=== PATIENT | male | born 1985 | race African-American/Black ===

== ENCOUNTER 2021-09-02 10:04 | Outpatient (CLI) | payer OTHER ==
--- NOTE | 2021-09-02 12:03 | SLEEP CARE CONSULTATION ---
Information from patient questionnaire entered by Omaira Suresh MA. I have reviewed and concur with the information entered by Omaira Suresh MA. This document represents the service I personally performed and the decisions made by me, Renetta Flor MD, [facility]. History of Present Illness Service Date and Time: 09/02/2021 1004 Reason for Visit: New patient (ONSET 08/2020, NO PRIORS, ) Chief Complaint: reports: Insomnia, Unrefreshed sleep, Snoring, Frequent awakenings at night Date of Onset: 1 YEAR Usual bedtime: 1201 Time it takes to fall asleep: HOURS Snores at night: Yes Sleeps alone due to snoring: No Number of times waking at night: MULTIPLE Reasons for waking at night: reports: Other Toss, Turn, or Twitch while sleeping: Yes Recalls having dreams: Yes Usually gets out of bed at: 0530 Feels refreshed in the morning: No Morning headache: Yes Sleepy or fatigued during the day: Yes Ever fallen asleep while driving: No Takes day naps: No Dreams during day naps: Yes Prior sleep studies: No Additional HPI information: I had the pleasure of seeing Mr. Escalante today regarding the possibility of him having a sleep disorder. As you know, he is a 35-year-old gentleman who complains of frequent awakenings, insomnia, loud snore, and unrefreshed sleep for the past 1 year. The patient tells me that he normally goes to bed around midnight, and it takes him approximately hours to fall asleep. He has been told that he snores loudly and irregularly at night. He has never been observed to stop breathing in his sleep. His can still sleep in the same bed. He can recall waking up on the average of 5 - 10 times during the night. Most of the time he wakes up because of unknown reason. He has never awakened because of his own snoring, choking, or having to gasp for air. There is a lot of tossing and turning in his sleep. He reports having somniloquy (sleep talking) and somnambulism (sleep walking). No injury so far. Generally, he can recall having dreams. In the morning he usually gets up out of the bed around 5:30 a.m. not feeling refreshed nor rested. He usually has a morning headache that lasts a long time. During the day he complains of feeling sleepy and fatigued. His score on [place] Sleepiness Scale is 21 out of 24. He never has fallen asleep while driving nor has had any accident due to sleepiness. He usually does not take naps during the day. Upon falling asleep during the day he reports having vivid dreams. He has never had sleep paralysis, experienced cataplexy or symptoms of restless leg syndrome. He denies having impaired concentration during the day. - Parasomnia Symptoms Ever been unable to move upon waking from sleep: No Walks in sleep: Yes Talks in sleep: Yes Ever acted out dreams in sleep: Yes Ever felt weak in the knees when startled or emotional: Yes Bothered by creepy, crawly, restless sensations in legs: No Problems with memory or concentration: No Subjective Initial [place] Sleepiness Scale score: 20 (2021) Past Medical History Past Medical History: reports: Hypertension, Anxiety Social History The patient's occupation is a [employer]. Patient is and lives in [place]. Have you smoked in the past 12 months: No Alcohol use: Yes Alcohol amount and frequency: 2 X WEEKLY Caffeine use: No Family History Family history of sleep disordered breathing: Yes Family Hx Sleep Apnea: Father: Snoring, Other: Snoring Allergies and Home Medications Known drug allergies: No Drug allergies reviewed: Yes Home medication list reviewed: Yes Review of Systems Cardiovascular: reports: high blood pressure, palpitations Respiratory: denies: shortness of breath, wheeze, sputum production, chronic cough, other Gastrointestinal: denies: heartburn, difficulty swallowing, nausea, vomitting, diarrhea, abdominal pain, other Urinary: denies: incontinence, frequency, urgency, impotence, other Neurological: denies: headaches, seizure, head trauma, disorientation, speech dysfunction, gait or balance problems, fainting or unconsciousness, other Psychiatric: reports: anxiety Ear/Nose/Throat: denies: nasal congestion, sinus problems, nose bleeds, dry mouth/throat, hoarseness, injury to nose, tonsillectomy, wisdom teeth removed, other Endocrine: denies: thyroid disease, history of goiter, sluggishness, too hot or cold, excessive thirst, increased appetite, increased urination, unexplained weakness, other Musculoskeletal: reports: joint pain, neck pain Immunologic: reports: rash Physical Exam Vital signs obtained and entered by: MAURILIO SHELTON Blood Pressure: 120/76 (RIGHT, PULSE 91, RESP 18,) Heart Rate: 89 O2 Saturation: 99 (CLOTH) Height: 5 ft 9 in Weight: 214 lb (PT CLOTHES) Body Mass Index: 31.6 BMI Classification: Obese Neck circumference: 17 (INCHES) Impression and Plan IMPRESSION: 1. Obstructive Sleep Apnea-Hypopnea Syndrome, as suggested by his tory of loud and irregular snoring, frequent awakenings during the night, unrefreshed sleep, morning headache, and daytime hypersomnolence. Narrow oropharynx and obesity are common predisposing factors for obstructive sleep apnea-hypopnea syndrome. Untreated obstructive sleep apnea can also cause hypertension. I recommend proceeding to polysomnography to confirm the diagnosis and to assess severity. If he has significant sleep disordered breathing, a manual CPAP titration study will also be performed to find the optimal treatment pressure. I informed the patient of what the sleep studies i nvolve and after some discussion, he agreed to proceed. 2. Insomnia, partly due to the patient being a short sleeper. He reports getting just 5 hours of sleep on the average. He does not sleep in on weekends. The frequent awakenings will need further investigation. Plan: 1. Schedule an in-laboratory polysomnography. 2. Avoid long distance driving or when feeling sleepy. 3. Avoid alcohol, sedative and muscle relaxant around bedtime. 4. Attempt to lose weight. 5. Return for follow up after the sleep study. Follow up with Sleep Care in: 1-2 months Plan: in-lab polysomnography Visit Type: In Office Time Spent with Patient (minutes): 15 Provider Statement: I spent 100% of the Face to Face Visit with the patient with greater than 50% spent counseling the patient and coordination of care.
[2021-09-02 12:04] VITALS: BP 120/76
== END 2021-09-02 10:05 | disposition home or self-care (01) ==
LOC: SC 10:04
PROVIDERS: ATTEND Internal Medicine Pulmonary Disease
DX: R06.83 Snoring (principal); G47.8 Other sleep disorders; R51.9 Headache, unspecified; G47.10 Hypersomnia, unspecified; E66.9 Obesity, unspecified; Z68.31 Body mass index [BMI] 31.0-31.9, adult
CPT/HCPCS: 99202; 99212

== ENCOUNTER 2021-09-18 10:08 | Outpatient (CLI) | payer OTHER | END 2021-09-18 10:09 | disposition home or self-care (01) | LOC: SC 10:08 | PROVIDERS: ATTEND Internal Medicine Pulmonary Disease | DX: R09.02 Hypoxemia (principal) | CPT/HCPCS: 95806 ==

== ENCOUNTER 2021-10-01 16:41 | Outpatient (CLI) | payer OTHER ==
[2021-10-01 16:30] VITALS: BP 139/80
--- NOTE | 2021-10-01 16:30 | SLEEP CARE CONSULTATION ---
Information from patient questionnaire entered by Omaira Suresh MA. I have reviewed and concur with the information entered by Omaira Suresh MA. This document represents the service I personally performed and the decisions made by Edita luke Caren J, ARNP. History of Present Illness Service Date and Time: 10/01/2021 1640 Initial [place] Sleepiness Scale score: 20 (2021) Current [place] Sleepiness Scale score: 18 Additional HPI information: JAME STEPHENS returns via video Telehealth visit for follow up and results of the recently performed home sleep study. The patient was informed of the following findings: No significant sleep disordered breathing with an average AHI of 4.3 and brinda oxygen saturation of 85%. I explained the pathophysiology behind obstructive sleep apnea. Patient does not have sleep apnea and was advised how weight gain could increase the risk of developing sleep apnea in the future. I strongly encouraged the patient to lose weight. Patient has moderate snoring. Snoring can be reduced by weight loss. Weight loss is best achieved with diet consult. Patient instructed to contact PCP for referral. Snoring can also be treated with an oral appliance from a dentist. Advised to check insurance coverage. In addition, an ENT evaluation can be do to see if other treatment is indicated. Patient was cautioned about risks of drowsy driving until sleepiness symptoms resolve. Sleep Study - Results Type of Sleep Study: Home sleep study (f/u home study, 09/19/2019 [facility],) Prior sleep studies: No Polysomnography/Home Sleep Study results: Physician Impression: The quality of the study is good. The length of the study is adequate (> 240 minutes). Please also see the tabulated and graphic data. 1. No significant sleep disordered breathing, with an AHI of 4.3/hr and brinda SaO2 of 85%. During the study, the patient had 6 apneas (6 obstructive, 0 central, 0 mixed) and 20 hypopneas. The longest episode lasted 71.5 seconds. The few respiratory events occurred more frequently during supine sleep (supine AHI was 4.7 and non-supine, 2.39). 2. Hypoxemia (ICD-10 R09.02), minimal, with the lowest oxygen saturation of 85 % and 0.6 minutes with SaO2 under 90%. Baseline oxygen saturation was normal (Average oxygen saturation was 95%). Allergies and Home Medications Home medication list reviewed: Yes (no changes) Review of Systems Review of systems same as previous: Yes (no changes) Physical Exam Vital signs obtained and entered by: MAURILIO SHELTON Blood Pressure: 139/80 (bicep) Cuff size: regular Height: 5 ft 9 in Weight: 209 lb Body Mass Index: 30.8 BMI Classification: Obese Impression and Plan 1. Snoring but no significant sleep disordered breathing. His AHI is 4.3 with a non-supine of 2.39. I advised he try to lose weight and to sleep more on his sides to control apneas in a good range to reduce daytime sleepiness. Patient advised that often weight loss will reduce snoring as well as apnea risk. An oral appliance can also be used for snoring. This would require a dental consultation. Patient cautioned not to use other online appliances as can cause bite issues. A list of accredited dentists in [facility] who make oral appliances is available in the office. Patient is advised to check if insurance will cover. An ENT consult can also be helpful to determine if any other treatment is an option. * Attempt to lose weight * Avoid alcohol consumption near bedtime * The patient is cautioned about driving until sleepiness is completely resolved. * Return as needed for follow up. Counseling Topics: Sleeping position, Weight loss health impact Visit Type: Telehealth Video Video Type: Doximity Patient Location: Home Location of Provider: Office Patient agrees and consents to this telehealth visit type: Yes Patient agrees to have their insurance billed: Yes Time Spent with Patient (minutes): 16 Provider Statement: I spent 100% of the Telehealth Video Call with the patient with greater than 50% spent counseling the patient and coordination of care.
== END 2021-10-01 16:42 | disposition home or self-care (01) ==
LOC: SC 16:41
PROVIDERS: ATTEND Nurse Practitioner Family
DX: R06.83 Snoring (principal); E66.9 Obesity, unspecified; Z68.30 Body mass index [BMI] 30.0-30.9, adult